=== PATIENT | male | born 1990 | race Caucasian/White ===

== ENCOUNTER 2023-01-04 06:00 | Day surgery (SDC) | payer SELFPAY ==
[~2023-01-04 06:00] MED LIST: Lactated Ringers 1,000 ML IV SCH; Lidocaine 1%/Sod Bicarbonate in NS 8.4% 1 ML Syringe IDERM PRN; Sodium Chloride 0.9% 10 ML Syringe FLUSH PRN; Sodium Chloride 0.9% 10 ML Syringe FLUSH SCH
[2023-01-04] MEDS ORDERED: HYDROmorphone 0.5 MG/0.5 ML Syringe IVPUSH PRN (06:37)
[2023-01-04] MEDS ORDERED: Ondansetron 4 MG/2 ML SDV IVPUSH PRN (06:37)
[2023-01-04] MEDS ORDERED: fentaNYL 100 MCG/2 ML SDV IVPUSH PRN (06:37)
[2023-01-04] MEDS ORDERED: ceFAZolin 2 GM Vial ONE (06:43)
[2023-01-04] MEDS ORDERED: Ondansetron 4 MG/2 ML SDV ONE (06:43)
[2023-01-04] MEDS ORDERED: Lidocaine 1% 2 ML ONE (06:43)
[2023-01-04] MEDS ORDERED: fentaNYL 100 MCG/2 ML SDV ONE (06:44)
[2023-01-04] MEDS ORDERED: Propofol 200 MG/20 ML SDV ONE (06:44)
[2023-01-04] MEDS ORDERED: Midazolam 1 MG/ML 2 ML SDV ONE (06:44)
[2023-01-04] MEDS ORDERED: Bupivacaine 0.25% 10 ML SDV ONE (06:45)
[2023-01-04] MEDS ORDERED: EPINEPHrine 1 MG/ML 30 ML MDV IRR SCH (07:00)
[2023-01-04] MEDS ORDERED: Ketorolac 30 MG/ML SDV ONE (07:15)
[2023-01-04] MEDS ORDERED: Phenylephrine HCl In 0.9% NaCl 1 MG/10 ML Vial ONE (07:37)
[2023-01-04] MEDS ORDERED: Acetaminophen/HYDROcodone 325-5 MG Tab PO ONE (08:55)
== END 2023-01-04 09:35 | disposition home or self-care (01) ==
LOC: JD.SDS 06:00
PROVIDERS: ATTEND Orthopaedic Surgery
DX: S83.242A Other tear of medial meniscus, current injury, left knee, initial encounter (principal); G25.81 Restless legs syndrome; F41.9 Anxiety disorder, unspecified; G47.33 Obstructive sleep apnea (adult) (pediatric); E78.5 Hyperlipidemia, unspecified; Z79.899 Other long term (current) drug therapy; Z87.891 Personal history of nicotine dependence
CPT/HCPCS: 29881; A9270; J0171; J0690; J1885; J2250; J2405; J2704; J3010; J3490; J7120; 01400